=== PATIENT | male | born 1990 | race African-American/Black ===

== ENCOUNTER 2021-07-01 09:43 | Emergency (ER) | payer OTHER, SELFPAY ==
[2021-07-01] MEDS ORDERED: CEFAZOLIN 1 GM VIAL ONE (10:00)
[2021-07-01] MEDS ORDERED: Fentanyl 100 MCG/2 ML VIAL ONE (10:00)
[2021-07-01] MEDS ORDERED: Ampicillin 2 GM VIAL ONE (10:00)
[2021-07-01] MEDS ORDERED: Propofol 1,000 MG/100 ML VIAL IV ONE ×2 (10:01→13:10)
[2021-07-01] MEDS ORDERED: Tranexamic Acid 1,000 MG/10 ML VIAL ONE ×2 (10:02→10:16)
[2021-07-01 10:06] LABS: Hemoglobin 10.9 g/dL (14.0-18.0); Mean Corpuscular HGB CONC 32.1 g/dL (32.0-36.0); Mean Corpuscular Hemoglobin 25.6 pg (27.0-31.0); Mean Corpuscular Volume 79.6 fL (78.0-98.0); Mean Platelet Volume 7.4 fL (7.4-10.4); Platelet Count 161 thou/uL (130-400); RBC Distribution Width 14.4 % (11.5-14.5); Red Blood Cell (RBC) Count 4.25 mill/uL (4.70-6.10); White Blood Cell (WBC) Count 20.1 thou/uL (4.8-10.8)
[2021-07-01 10:34] LABS: Band 26 % (5-11); Lymphocytes 15 % (21-51); MDiff Complete? YES; Metamyelocyte 1 % (0-0); Microcytosis SLIGHT = 6-15 cells (100X) (0-5/hpf); Monocytes 4 % (0-10); Neutrophil 50 % (42-75); Platelet Morphology Comment Appears Adequate; Polychromasia SLIGHT = 2-3 cells (100X) (0-2/hpf); Reactive Lymphocytes 4 % (0-10)
[2021-07-01 10:35] LABS: ALT (SGPT) 113 U/L (8-55); AST (SGOT) 205 U/L (5-34); Albumin 3.1 g/dL (3.5-5.0); Alcohol 116 mg/dL (Less than 10); Alkaline Phosphatase 60 U/L (40-110); Anion Gap 17 mmol/L (10-20); BUN (Urea Nitrogen) 10 mg/dL (8.9-20.6); Bilirubin, Total 0.3 mg/dL (0.2-1.2); Calc. Creatinine Clearance 0 mL/min (70-130); Calcium 6.8 mg/dL (7.8-10.44); Carbon Dioxide 15 mmol/L (22-29); Chloride 115 mmol/L (98-107); Globulin 2.2 g/dL (2.4-3.5); Glucose 376 mg/dL (70-105); Lipase 106 U/L (8-78); Potassium 3.9 mmol/L (3.5-5.1); Protein, Total 5.3 g/dL (6.0-8.3); Sodium 143 mmol/L (136-145)
[2021-07-01 10:41] LABS: INR-International Normal Ratio 1.3; PTT 27.7 sec (22.9-36.1); Prothrombin Time 16.7 sec (12.0-14.7)
[2021-07-01 11:03] LABS: Analyzer IN Cardio ER; Base Excess (BEa) -14.7 mEq/L (-2.0 to +3.0); CO2 Tension 43.4 mmHg (35.0-45.0); Calcium, Ionized (arterial) 1.06 mmol/L (1.12-1.30); Carboxyhemoglobin (COHb) 0.5 gm% (0.0-3.0); Hemoglobin (Hb) 12.9 g/dL (14.0-18.0); Potassium - ABG Lab 3.71 mmol/L (3.70-5.30)
[2021-07-01 11:08] LABS: Puncture Site RRA; pH, Arterial 7.13 (7.35-7.45)
[2021-07-01] MEDS ORDERED: Esmolol 2,500 MG/250 ML 250 ML IVPB SCH (12:30)
[2021-07-01] MEDS ORDERED: Calcium Chloride 1 GM/10 ML Abboject SYRINGE ONE (13:20)
== END 2021-07-01 11:12 | disposition short-term general hospital (02) ==
LOC: ERS 09:43
DX: T79.4XXA Traumatic shock, initial encounter (principal); S72.351A Displaced comminuted fracture of shaft of right femur, initial encounter for closed fracture; S32.441A Displaced fracture of posterior column [ilioischial] of right acetabulum, initial encounter for closed fracture; S01.112A Laceration without foreign body of left eyelid and periocular area, initial encounter; S30.1XXA Contusion of abdominal wall, initial encounter; S27.329A Contusion of lung, unspecified, initial encounter; S50.812A Abrasion of left forearm, initial encounter; S25.00XA Unspecified injury of thoracic aorta, initial encounter; S36.00XA Unspecified injury of spleen, initial encounter; K43.9 Ventral hernia without obstruction or gangrene; V49.49XA Driver injured in collision with other motor vehicles in traffic accident, initial encounter; Y92.415 Exit ramp or entrance ramp of street or highway as the place of occurrence of the external cause; R00.0 Tachycardia, unspecified
CPT/HCPCS: 36415; 36430; 36600; 70450; 70498; 71045; 71260; 72125; 72170; 74177; 80307; 82805; 83605; 83690; 85610; 85730; 86850; 86900; 86901; 87070; 93005; 94002; 94760; 96365; 96368; 96375; G0390; J0290; J0690; J2704; J3010; P9016